=== PATIENT | female | born 1950 | race Caucasian/White ===

== ENCOUNTER → 2019-01-30 | Outpatient (CLI) | payer MEDICARE ==
[2017-05-06 19:36] VITALS: BMI 41.0
[~2019-01-30] MED LIST: ACET-3160 PO; AMLO-127 PO; ASPI-1471 PO; BENA20TA64 PO; DOXY50CA27 PO; FEXO-67 PO; LEVO-3 PO; MET60GMPT TOP; MONT10TA PO; MULT1CAP59 PO; OXYC-823 PO; PER PO; PRAV20TA65 PO
== END ==
LOC: US 01:55
PROVIDERS: ATTEND Internal Medicine Clinical Cardiac Electrophysiology
DX: I50.30 Unspecified diastolic (congestive) heart failure (principal); I34.1 Nonrheumatic mitral (valve) prolapse; I07.1 Rheumatic tricuspid insufficiency; I37.0 Nonrheumatic pulmonary valve stenosis; Z95.0 Presence of cardiac pacemaker
CPT/HCPCS: 93306

== ENCOUNTER → 2019-02-08 | Outpatient (CLI) | payer MEDICARE ==
[2017-05-06 19:36] VITALS: BMI 41.0
--- NOTE | 2019-02-09 11:15 | RADIOLOGY IMAGING REPORT ---
[place]AC[place] [facility] [place]IENT NAME: LEAH BORJAS : [id number] MR: [id number] V: [id number] EXAM DATE: [id number] ORDERING PHYSICIAN: CHARLENE LONDON TECHNOLOGIST: Char Sevilla PROCEDURE:BILATERAL DIGITAL SCREENING MAMMOGRAM WITH CAD ASSISTED INTERPRETATION & 3D TOMOSYNTHESIS COMPARISON:Prior mammograms 09/08/16, 02/08/14, 05/25/2012. INDICATIONS:SCREENING FINDINGS: The breasts have scattered fibroglandular parenchymal densities. There are no mammographic findings concerning for malignancy. No significant interval change. DIAGNOSTIC CATEGORY 1--NEGATIVE. RECOMMENDATIONS: ROUTINE MAMMOGRAM AND CLINICAL EVALUATION IN 1 YR. IMPRESSION: BIRADS 1: Negative. Dictated by: Raul Kim on 02/09/2019 at 9:17 Transcribed by: CINDY on 02/09/2019 at 10:54 Approved by: Raul Kim on 02/09/2019 at 11:14 [facility]
== END ==
LOC: MAMO 01:03
PROVIDERS: ATTEND Family Medicine
DX: Z12.31 Encounter for screening mammogram for malignant neoplasm of breast (principal)
CPT/HCPCS: 77063; 77067